=== PATIENT | female | born 1990 | race Two or more races ===

== ENCOUNTER 2024-07-25 22:00 | Emergency (ER) | payer MEDICAID, SELFPAY ==
[2024-07-25 22:00] VITALS: BMI 32.9
[2024-07-25 22:10] VITALS: BP 131/91; PULSE 122; RESP 19; TEMP 36.8; O2SAT 99
--- NOTE | 2024-07-25 22:25 | PD.EDNECK ---
ED Neck Injury Pain RME/HPI General Chief Complaint: General Adult/Misc Complain Stated Complaint: BUMP TO RIGHT SIDE OF NECK Time Seen by Provider: 07/25/24 22:21 Arrival date/time: 07/25/24 22:00 34F with no significant PMH presents to ED with several months of R neck swelling and discomfort. Patient had unremarkable US and blood work (including thyroid tests) at [facility]. Patient did not want to wait for CT and similarly, does not want to wait today. Limitations: no limitations Related Data Home Medications ?Medication ?Instructions ?Recorded ?Confirmed No Known Home Medications 12/15/18 12/15/18 Previous Rx's ?Medication ?Instructions ?Recorded hydrocodone 5 mg-acetaminophen 325 1 tab PO BID PRN pain #14 tabs 12/15/18 mg tablet ([place]) ibuprofen 600 mg tablet 600 mg PO Q8H PRN fever or pain 12/15/18 #30 tabs Allergies Allergy/AdvReac Type Severity Reaction Status Date / Time No Known Allergies Allergy Verified 12/15/18 01:57 Review of Systems Review of Systems Systems Reviewed: All systems reviewed, normal except as documented Constitutional Constitutional: Reports system reviewed and no additional complaints, except as documented, Denies fever(s) and Denies headache(s) ENT Ears, Nose, Mouth, and Throat: Denies disequilibrium and Denies headache(s) Cardiovascular Cardiovascular: Reports system reviewed and no additional complaints, except as documented, Denies chest pain and Denies dyspnea Respiratory Respiratory: Reports system reviewed and no additional complaints, except as documented, Denies cough and Denies dyspnea Gastrointestinal Gastrointestinal: Reports system reviewed and no additional complaints, except as documented, Denies abdominal pain, Denies nausea and Denies vomiting Integumentary/Breasts Skin/Breast: Reports as per HPI and Reports skin swelling Neurologic Neurologic: Reports system reviewed and no additional complaints, except as documented, Denies confusion, Denies disequilibrium and Denies headache(s) Psychiatric Psychiatric: Denies confusion Past Medical History Past Medical History CARDIAC: Negative Congestive Heart Failure RESPIRATORY: Negative Chronic Obstructive Pulmonary Disease (COPD) GENITOURINARY: Negative Renal Disease ENDOCRINE: Negative Diabetes Mellitus Type 1 or Diabetes Mellitus Type 2 Social History SMOKING STATUS: Never smoker ED Exam General Limitations: Present no limitations General appearance: Present alert and in no apparent distress Head Head exam: Present atraumatic Eye Eye exam: Present normal appearance, PERRL and EOMI ENT ENT exam: Present normal exam, normal oropharynx and mucous membranes moist Neck Neck exam: Present normal inspection, full ROM and trachea midline Chest Chest inspection: Present normal inspection and symmetric chest wall rise Respiratory Respiratory exam: Present normal lung sounds bilaterally Cardiovascular Cardiovascular exam: Present regular rate, normal rhythm and normal heart sounds Abdominal Exam Abdominal exam: Present soft and normal bowel sounds Extremities Exam Extremities exam: Present normal inspection and full ROM Back Exam Back exam: Present normal inspection and full ROM Neurological Exam Neurological exam: Present alert, oriented X3 and CN II-XII intact Psychiatric Psychiatric exam: Present normal affect and normal mood Skin Skin exam: Present warm, dry, intact and normal color Course Quality Measures none Vital Signs Vital signs: Vital Signs Temperature 98.3 F 07/25/24 22:10 Pulse Rate 122 H 07/25/24 22:10 Respiratory Rate 19 07/25/24 22:10 Blood Pressure 131/91 H 07/25/24 22:10 Pulse Oximetry (%) 99 07/25/24 22:10 Oxygen Delivery Method Room Air 07/25/24 22:10 O2 at 99% on RA and WNLs Neck Pain MDM Narrative MDM Narrative:: 34F with no significant PMH presents to ED with several months of R neck swelling and discomfort. Patient had unremarkable US and blood work (including thyroid tests) at [facility]. Patient did not want to wait for CT and similarly, does not want to wait today. Physical exam reveals no gross neck swelling, though possibly R submental/anterior cervical chain. NT clear. Patient is afebrile, calm, and alert. [employer] given. Patient data External records reviewed:: [facility] previous records Clinical information provided by:: patient Social determinants that could affect healthcare access:: none Patient has the following chronic illnesses:: none How is presenting disease/condition affected by chronic disease/condition?: no chronic disease Evaluation data The following diagnostics were reviewed and interpreted by me:: other (specify) (none) Lab and/or radiology exams considered but not ordered:: not ordered Interpretation Summary: n/a Medications / Prescriptions Medications or Prescriptions considered but not ordered:: not ordered Medication administrations:: n/a Consultations Consultation(s) initiated? (list below): No Diagnosis Neck Differential Diagnosis: disc disorder of cervical region, whiplash injury to neck, closed subluxation of cervical spine, fracture of cervical spine without lesion of spinal cord, cervical radiculopathy, vertebral artery dissection, torticollis, cervical spondylosis, strain of neck muscle and other (neck swelling) Most likely diagnosis given after review of the tests above:: neck swelling Admission Indicated Admission indicated?: not indicated Admission Request Was there a request for admission?: No Disposition Plan Disposition Plan: Discharge Discharge Attestation Discharge Attestation: The patient and all family members were given an opportunity to ask questions and understood the discharge instructions. Discharge instructions specifically effects, indications for sooner follow up or return to the emergency department, and the expected course of current diagnosis. Patient condition: Stable Discharge Plan Plan Patient Disposition: HOME (Self Care) Disposition Comment: Stable Prescriptions/Referrals Prescriptions/Med Rec: No Action No Known Home Medications hydrocodone-acetaminophen [[place]] 5-325 mg tablet 1 tab PO BID MDD 4 PRN (Reason: pain) Qty: 14 0RF ibuprofen 600 mg tablet 600 mg PO Q8H PRN (Reason: fever or pain) Qty: 30 0RF Problem List Clinical Impression: Neck swelling Patient/Caregiver Discharge Instructions Education Materials: Lymphadenopathy Additional Instructions: Please follow-up with PCP within 24-48 hours and return immediately if symptoms worsen. Can see walk-in clinics such as [facility] or [facility]. They accept appts and walk-ins. Print Language: Kyrgyz Stand Alone Forms: Patient Portal Info Letter ZACK/ORI Supervising Physician ZACK/ORI Supervising Physician: Dr. Cole
== END 2024-07-25 22:29 | disposition home or self-care (01) ==
PROVIDERS: Emergency Provider Emergency Medicine
DX: R22.1 Localized swelling, mass and lump, neck (principal)
CPT/HCPCS: 99281